=== PATIENT | male | born 1985 | race Caucasian/White ===

== ENCOUNTER 2019-02-10 04:52 | Emergency (ER) | payer BC ==
[~2019-02-10] VITALS: Ht 188 cm; Wt 79.4 kg
[~2019-02-10 04:52] MED LIST: PEPTO-BISMOL T262 MG PO
[2019-02-10] MEDS ORDERED: KETOROLAC TROME10 MG PO (06:29)
== END 2019-02-10 06:45 | disposition home or self-care (01) ==
LOC: ED 04:52
DX: N13.2 Hydronephrosis with renal and ureteral calculous obstruction (principal); F17.200 Nicotine dependence, unspecified, uncomplicated
CPT/HCPCS: 74176; 80053; 81001; 83690; 85025; 96374; 96375; 99284-25; J1885; J2405; J7030

== ENCOUNTER 2021-12-31 23:04 | Emergency (ER) | payer BC ==
[~2021-12-31] VITALS: Ht 188 cm; Wt 77.6 kg
[~2021-12-31 23:04] MED LIST changes: +KETOROLAC TROME10 MG PO
[2022-01-01] MEDS ORDERED: BACTRIM DS TAB1 EACH PO (04:16)
[2022-01-01] MEDS ORDERED: CEPHALEXIN500 MG PO (04:16)
[2022-01-01] MEDS ORDERED: SPORANOX100 MG PO (04:16)
== END 2022-01-01 04:45 | disposition home or self-care (01) ==
LOC: ED 23:04
DX: L02.511 Cutaneous abscess of right hand (principal); I89.1 Lymphangitis; F17.200 Nicotine dependence, unspecified, uncomplicated; Z23 Encounter for immunization
CPT/HCPCS: 26010; 90471; 90715; 99283-25; A9270